=== PATIENT | female | born 1975 | race Caucasian/White ===

== ENCOUNTER 2018-01-14 16:25 | Emergency (ER) | payer MEDICAID, SELFPAY ==
[2018-01-14 16:26] VITALS: BP 148/115; PULSE 71; RESP 16; TEMP 35.6; O2SAT 99; BMI 56.0
[2018-01-14 16:45] VITALS: BP 142/69; PULSE 71; RESP 16; O2SAT 98
--- NOTE | 2018-01-14 16:48 | ED.VISSUMM ---
- ER Visit Summary Date of Service: 01/14/18 Chief Complaint: Atraumatic left posterior knee pain History of Present Illness: The patient is a 42 F with 3 day history of atraumatic left posterior knee pain. She has had this before. She has had negative noninvasive studies in the past. She denies any history of DVT or PE. She denies any recent travel or surgery. She denies any recent hospitalization. The pain is worse when she walks. She denies any redness or swelling to the anterior aspect of her left knee. She has never had the surgery. Physical Examination: Well-appearing middle-age female. Vital signs are stable afebrile. H EENT exam unremarkable lungs clear to auscultation heart regular rhythm no murmur. Abdomen morbidly obese but soft. Nontender. She is moving all 4 extremities. They are neurovascularly intact. She has full range of motion to her left hip, left knee and left ankle. Left foot is neurovascularly intact with DP pulse. Warm to touch and normal sensation. Left knee anteriorly appears normal. There is no effusion. She has normal flexion-extension. She does have more pain with flexion. She has tenderness in the popliteal fossa. Neurologic exam is unremarkable. Test Results: X-ray left knee shows degenerative changes with decreased joint space in the medial aspect of her left knee. There is no gross bony abnormalities. This may be secondary to degenerative joint disease and may be a cause of her pain. Noninvasive study left lower extremity is pending. This will be checked by the afternoon emergency physician and disposition will be made. Emergency Department Course and Treatment: Will be given 1 [place] for pain. Treatment Plan: Charge to home. Limited [place] for pain. Ice. And Motrin. Call and follow-up with orthopedics. Disposition: Discharge Impression: Atraumatic left posterior knee pain secondary to degenerative joint disease This note was generated with [employer] dictation software. It may contain incorrect words, spelling, and punctuation that were not noted in review of the chart prior to signing ED Disposition - Plan for ED Patient: Disposition: Home or Assisted Living Chief Complaint: Lower Extremity Injury Instructions: ED Knee Pain UKO Prescriptions: Hydrocodone/Acetaminophen [[place] 7.5-325 Tablet] 1 ea PO Q6H PRN PRN #10 tab PRN Reason: Pain Referrals: Juan Mancuso MD [STAFF PHYSICIAN] - As soon as possible Additional Instructions: Ice to your left knee. Hazel for pain along with Alayna for Call and follow-up with Dr. Juan Mancuso orthopedics for further evaluation of your knee. You do have degenerative changes of your medial knee which may be from arthritis or wear and tear of the cartilage.
--- NOTE | 2018-01-14 16:51 | ED.DCSUM_ITS ---
- ER Visit Summary Date of Service: 01/14/18 Chief Complaint: Atraumatic left posterior knee pain History of Present Illness: The patient is a 42 F with 3 day history of atraumatic left posterior knee pain. She has had this before. She has had negative noninvasive studies in the past. She denies any history of DVT or PE. She denies any recent travel or surgery. She denies any recent hospitalization. The pain is worse when she walks. She denies any redness or swelling to the anterior aspect of her left knee. She has never had the surgery. Physical Examination: Well-appearing middle-age female. Vital signs are stable afebrile. H EENT exam unremarkable lungs clear to auscultation heart regular rhythm no murmur. Abdomen morbidly obese but soft. Nontender. She is moving all 4 extremities. They are neurovascularly intact. She has full range of motion to her left hip, left knee and left ankle. Left foot is neurovascularly intact with DP pulse. Warm to touch and normal sensation. Left knee anteriorly appears normal. There is no effusion. She has normal flexion- extension. She does have more pain with flexion. She has tenderness in the popliteal fossa. Neurologic exam is unremarkable. Test Results: X-ray left knee shows degenerative changes with decreased joint space in the medial aspect of her left knee. There is no gross bony abnormalities. This may be secondary to degenerative joint disease and may be a cause of her pain. Noninvasive study left lower extremity is pending. This will be checked by the afternoon emergency physician and disposition will be made. Emergency Department Course and Treatment: Will be given 1 [place] for pain. Treatment Plan: Charge to home. Limited [place] for pain. Ice. And Motrin. Call and follow-up with orthopedics. Disposition: Discharge Impression: Atraumatic left posterior knee pain secondary to degenerative joint disease This note was generated with [employer] dictation software. It may contain incorrect words, spelling, and punctuation that were not noted in review of the chart prior to signing ED Disposition - Plan for ED Patient: Disposition: Home or Assisted Living Chief Complaint: Lower Extremity Injury Instructions: ED Knee Pain UKO Prescriptions: Hydrocodone/Acetaminophen [[place] 7.5-325 Tablet] 1 ea PO Q6H PRN PRN #10 tab PRN Reason: Pain Referrals: Juan Mancuso MD [STAFF PHYSICIAN] - As soon as possible Additional Instructions: Ice to your left knee. Hazel for pain along with Alayna for Call and follow-up with Dr. Juan Mancuso orthopedics for further evaluation of your knee. You do have degenerative changes of your medial knee which may be from arthritis or wear and tear of the cartilage.
--- NOTE | 2018-01-14 16:51 | RAD_ITS ---
XR Knee 3 Views INDICATION: LEFT KNEE PAIN. NKI COMPARISON: None TECHNIQUE: 3 views of the left knee FINDINGS: The medial joint compartment is narrowed. Marginal osteophytes are noted. There is no significant joint effusion. There is no evidence of fracture or dislocation. RAD/Knee 3 Views IMPRESSION: Degenerative changes at the left knee predominantly involving the medial compartment. at 1743 Reported and signed by: Cindy Delgado MD Electronically Signed: Cindy Delgado MD at 16:42 EDT Tel , Service support ,
--- NOTE | 2018-01-14 17:11 | ED.DEP ---
ED Disposition - Plan for ED Patient: Disposition: Home or Assisted Living Chief Complaint: Lower Extremity Injury Instructions: ED Knee Pain UKO Prescriptions: Hydrocodone/Acetaminophen [[place] 7.5-325 Tablet] 1 ea PO Q6H PRN PRN #10 tab PRN Reason: Pain Referrals: Juan Mancuso MD [STAFF PHYSICIAN] - As soon as possible Additional Instructions: Ice to your left knee. [place] for pain along with Motrin for Call and follow-up with Dr. Juan Mancuso orthopedics for further evaluation of your knee. You do have degenerative changes of your medial knee which may be from arthritis or wear and tear of the cartilage.
[2018-01-14] MEDS: HYDROcodone Bitartrate/Apap 5/325 Tablet PO (17:16)
--- NOTE | 2018-01-14 17:16 | DCINST.ED_ITS ---
ED Disposition - Plan for ED Patient: Disposition: Home or Assisted Living Chief Complaint: Lower Extremity Injury Instructions: ED Knee Pain UKO Prescriptions: Hydrocodone/Acetaminophen [[place] 7.5-325 Tablet] 1 ea PO Q6H PRN PRN #10 tab PRN Reason: Pain Referrals: Juan Mancuso MD [STAFF PHYSICIAN] - As soon as possible Additional Instructions: Ice to your left knee. [place] for pain along with Motrin for Call and follow-up with Dr. Juan Mancuso orthopedics for further evaluation of your knee. You do have degenerative changes of your medial knee which may be from arthritis or wear and tear of the cartilage.
--- NOTE | 2018-01-14 17:55 | US_ITS ---
US Venous Duplex LE Unilat / Limited INDICATION: LT POSTERIOR KNEE PAIN COMPARISON: None TECHNIQUE: Ultrasonographic grayscale, duplex investigation of the venous structures of the right lower extremity. Doppler waveform analysis. FINDINGS: Study is difficult and limited due to patient's body habitus. There is normal flow and augmentation without evidence of thrombus in the right greater saphenous vein, common femoral vein, femoral vein, popliteal vein, and posterior tibial vein. US/Venous Duplex Imag/Limited/Uni IMPRESSION: Negative examination. No evidence of DVT in the right lower extremity. at 1836 Reported and signed by: Cindy Delgado MD Electronically Signed: Cindy Delgado MD at 17:34 EDT Tel , Service support ,
[2018-01-14 20:12] VITALS: PULSE 82; RESP 16; O2SAT 98
== END 2018-01-14 20:12 | disposition home or self-care (01) ==
PROVIDERS: Emergency Provider Emergency Medicine
DX: M17.12 Unilateral primary osteoarthritis, left knee (principal); Z72.0 Tobacco use
CPT/HCPCS: 73562; 93971; 99283

== ENCOUNTER 2018-01-25 17:07 | Emergency (ER) | payer MEDICAID, SELFPAY ==
[2018-01-25 17:10] VITALS: BP 145/50; PULSE 73; RESP 15; TEMP 36
[2018-01-25 17:17] VITALS: BMI 56.1
--- NOTE | 2018-01-25 17:55 | RAD_ITS ---
STUDY: X-RAY - LEFT TIBIA AND FIBULA REASON FOR EXAM: Female, 42 years old. PAIN, FALL TECHNIQUE: 2 view(s) of the tibia and fibula were obtained. 4 images COMPARISON: None. FINDINGS: Normal visualized tibia. Normal visualized fibula. The soft tissue structures are unremarkable. RAD/Tibia & Fibula 2 Views IMPRESSION: Normal x-ray examination of the tibia and fibula. Electronically Signed: Alyson Galan MD at 18:59 EDT Tel , Service support ,
--- NOTE | 2018-01-25 19:09 | ED.VISSUMM ---
- ER Visit Summary Date of Service: 01/25/18 Chief Complaint: Left leg pain History of Present Illness: The patient is a 42 F who presents with left leg pain. She has been having symptoms for about 1 week. She complains of left calf pain. She was recently seen in the emergency department. She had a knee x-ray which showed some degenerative changes and reports that she also had a negative venous duplex. She states that she fell yesterday twisting her lower leg and has had increased pain since that time. Although she initially reported to staff that she has been unable to bear any weight on further history she was actually able to get up and down the steps yesterday and was able to ambulate today with the use of a cane. She states that she has hydrocodone at home but does not like to take it because of nausea and only makes her feel. Physical Examination: Afebrile vitals are unremarkable Heart regular rate and rhythm Lungs are clear Abdomen soft Patient does have some left calf tenderness but no soft tissue swelling skin appears normal she has an easily palpable dorsalis pedis pulse with active full range of motion and normal sensation light touch Test Results: X-ray of the tibia and fibula is normal Emergency Department Course and Treatment: Patient does have a history of prior similar symptoms and recently had a negative duplex. She does report increased pain after a fall. Therefore we did obtain x-rays which are unremarkable. She was advised on supportive care. If she does not want to take the opiates that she has at home she was advised to use ibuprofen or Aleve rest ice and elevate. The patient was discharged. Treatment Plan: [] Disposition: Discharge Impression: Left leg pain This note was generated with [employer] dictation software. It may contain incorrect words, spelling, and punctuation that were not noted in review of the chart prior to signing ED Disposition - Plan for ED Patient: Chief Complaint: Lower Extremity Injury Referrals: Care Physician,No Primary [Primary Care Provider] -
--- NOTE | 2018-01-25 19:12 | ED.DCSUM_ITS ---
- ER Visit Summary Date of Service: 01/25/18 Chief Complaint: Left leg pain History of Present Illness: The patient is a 42 F who presents with left leg pain. She has been having symptoms for about 1 week. She complains of left calf pain. She was recently seen in the emergency department. She had a knee x -ray which showed some degenerative changes and reports that she also had a negative venous duplex. She states that she fell yesterday twisting her lower leg and has had increased pain since that time. Although she initially reported to staff that she has been unable to bear any weight on further history she was actually able to get up and down the steps yesterday and was able to ambulate today with the use of a cane. She states that she has hydrocodone at home but does not like to take it because of nausea and only makes her feel. Physical Examination: Afebrile vitals are unremarkable Heart regular rate and rhythm Lungs are clear Abdomen soft Patient does have some left calf tenderness but no soft tissue swelling skin appears normal she has an easily palpable dorsalis pedis pulse with active full range of motion and normal sensation light touch Test Results: X-ray of the tibia and fibula is normal Emergency Department Course and Treatment: Patient does have a history of prior similar symptoms and recently had a negative duplex. She does report increased pain after a fall. Therefore we did obtain x-rays which are unremarkable. She was advised on supportive care. If she does not want to take the opiates that she has at home she was advised to use ibuprofen or Aleve rest ice and elevate. The patient was discharged. Treatment Plan: [] Disposition: Discharge Impression: Left leg pain This note was generated with [employer] dictation software. It may contain incorrect words, spelling, and punctuation that were not noted in review of the chart prior to signing ED Disposition - Plan for ED Patient: Chief Complaint: Lower Extremity Injury Referrals: Care Physician,No Primary [Primary Care Provider] -
--- NOTE | 2018-01-25 19:13 | ED.DEP ---
ED Disposition - Plan for ED Patient: Chief Complaint: Lower Extremity Injury Instructions: ED Muscle Pain Leg Cramps Referrals: Care Physician,No Primary [Primary Care Provider] -
== END 2018-01-25 19:28 | disposition home or self-care (01) ==
LOC: ED 17:38
PROVIDERS: Emergency Provider Emergency Medicine
DX: M79.662 Pain in left lower leg (principal)
CPT/HCPCS: 73590; 99282

== ENCOUNTER 2020-11-12 15:22 | Emergency (ER) | payer MEDICAID, SELFPAY ==
[2020-11-12 15:23] VITALS: BP 149/94; PULSE 80; RESP 17; TEMP 36.3; O2SAT 100; BMI 61.4
--- NOTE | 2020-11-12 15:49 | ED.VIS.GEN ---
History of Present Illness Chief Complaint: Edema Informant: Patient Onset: Yesterday Current Severity: Mild Maximum Severity: Mild Narrative: Patient presents secondary to a erythematous painful swollen area on her right leg. She noted it last night while she was at work. She denies any known injury. She is concerned for a blood clot. She does not have significant chest pain but states occasionally when she takes a very deep breath and she will have a slight pain at the end of inhalation. She does not feel short of breath. She has no history of DVT or PE. - Past Medical History (1) Hypertension Status: Chronic (2) Kidney stones Status: Resolved Past Medical History - Allergies and Home Meds Allergies/Adverse Reactions: Allergies codeine phosphate [From Tylenol-Codeine #3] Adverse Reaction (Verified 11/12/20 15:22) Nausea Primary Care Physician: Care Physician,No Primary [Primary Care Provider] - Prior records reviewed: Yes Lives: With Family Smoking Status: Never smoker Review of Systems General: Denies: Chills, Fever Eyes: Denies: Visual changes - bilaterally ENT: Denies: Bilateral ear pain Cardiovascular: Denies: Chest pain Respiratory: Denies: Dyspnea, Cough Gastrointestinal: Denies: Abdominal pain, Vomiting, Diarrhea Genitourinary: Denies: Dysuria Musculoskeletal: Reports: Swelling, Extremity Pain Skin: Denies: Rash Neurological: Denies: Headache Hematologic: Denies: Easy bruising, Easy bleeding Allergy: Denies: Uticaria Physical Exam Vital Signs/Narrative: Vital Signs Temp Pulse Resp BP Pulse Ox 11/12/20 15:23 97.3 F L 80 17 149/94 H 100 Inital Vital Signs reviewed: Yes General: Well nourished, Well developed Head: Normocephalic Eyes: Perrl ENT: Moist mucous membranes Neck: Supple Cardiovascular: Regular rate, Regular rhythm Respiratory: No distress, CTA bilaterally Abdomen: Soft, Nontender Extremities: - - Patient has a linear area of erythema with mild induration over the posterior lateral distal thigh on the right. This appears to be consistent with superficial thrombophlebitis. Neurological: Alert, Oriented x3 Psychological: Normal affect Diagnostic/Tx/Re-eval - Medical Decision Making On physical exam patient appears to have superficial thrombophlebitis. She presents at a time I do not have venous ultrasound available to evaluate for DVT. She will be given a one-time dose of Lovenox and will return tomorrow for an outpatient ultrasound of her leg. Patient is comfortable with this plan. Heart rate and pulse oximetry are normal at this time I do not suspect significant PE. ED Disposition - Plan for ED Patient: Disposition: Home or Assisted Living Diagnosis: Superficial thrombophlebitis Instructions: ED Thrombophlebitis, Superficial Referrals: Rai Alejo III, MD [STAFF PHYSICIAN] - 1-2 Weeks
[2020-11-12] MEDS: Enoxaparin 150 MG/ML Syringe SC (16:07)
[2020-11-12 16:09] VITALS: PULSE 89; RESP 18; O2SAT 98
== END 2020-11-12 16:10 | disposition home or self-care (01) ==
LOC: ED 16:04
PROVIDERS: Emergency Provider Emergency Medicine
DX: I80.3 Phlebitis and thrombophlebitis of lower extremities, unspecified (principal); Z87.442 Personal history of urinary calculi
CPT/HCPCS: 99282

== ENCOUNTER → 2020-11-13 14:57 | Outpatient (CLI) | payer MEDICAID, SELFPAY ==
[2020-11-12 15:23] VITALS: BMI 61.4
--- NOTE | 2020-11-13 14:59 | VDLE_ITS ---
Reason For Study: Swelling RIGHT GSV is normal. CFV is compressible, spontaneous, phasic, competent and demonstrates normal augmentation. FV is compressible, spontaneous, phasic, competent and demonstrates normal augmentation. POP V is compressible, spontaneous, phasic, competent and demonstrates normal augmentation. T/P Trunk is compressible. PTV is compressible. RT PerV is compressible. FV mid-distal visualized with color only, pt unable to tolerate compression. Thrombus filled varicose veins noted in posterior lateral distal thigh-knee area. Thrombus is not extending in to the SSV. Procedure This is a venous duplex using B-mode, color flow and spectral Doppler. Exam performed in department. A preliminary report was called and/or faxed to ED for treatment. Pt was seen in ED 11/12/2020, no PCP so taken back down to ED. Interpretation Summary Deep veins of the right lower extremity are patent and compressible segmentally. There is no evidence of right lower extremity deep vein thrombosis. Valvular competence appears intact within the proximal deep venous system on the right . The right great saphenous vein appears patent and compressible segmentally. Acute superficial thrombophlebitis is noted involving superficial varicosities in the distal, postero-lateral thigh and at the level of the knee. The superficial thrombophlebitis does not extend into the right small saphenous vein. Ordering Physician: Sarita Langston Performed By: Angie Montelongo RVT
== END ==
PROVIDERS: Referring Provider Emergency Medicine; Visit Provider Emergency Medicine
DX: M79.89 Other specified soft tissue disorders (principal)
CPT/HCPCS: 93971

== ENCOUNTER 2020-11-13 15:28 | Emergency (ER) | payer MEDICAID, SELFPAY ==
[2020-11-12 15:23] VITALS: BMI 61.4
[2020-11-13 15:29] VITALS: BP 171/88; PULSE 76; RESP 16; TEMP 36.1; O2SAT 99; BMI 63.6
--- NOTE | 2020-11-13 15:59 | ED.VISSUMM ---
- ER Visit Summary Date of Service: 11/13/20 Chief Complaint: Right leg pain History of Present Illness: The patient is a 45 F who presents with right leg pain that began 2 to 3 days ago. Patient was seen here yesterday and was ordered an outpatient venous Doppler ultrasound. This was done today. Patient has thrombus filled varicose vein in the posterior lateral distal thigh and knee area. Patient was then referred to the emergency department because she has no primary care physician. Patient denies any change in pain. Patient denies any fevers or chills. Patient denies any chest pain or shortness of breath. Patient describes her pain is burning. Patient states it is worse with ambulation. Physical Examination: Vital signs are stable. Patient is afebrile. Patient is in no acute distress. Heart was regular rate and rhythm. Lungs are clear and equal bilaterally. Abdomen is soft. Bowel sounds are normal. There is no tenderness. Musculoskeletal exam reveals some erythema and tenderness over the right lateral knee and proximal lower leg. There is no discharge or drainage. There is no calf tenderness. There is good range of motion. Cranial nerves II through XII are intact. There are no focal motor or sensory deficits. Test Results: Venous duplex results from her outpatient ultrasound was reviewed. There is a thrombus filled varicose vein noted in the posterior lateral distal right thigh/knee area. The thrombus is not extending into the deep vein system. Emergency Department Course and Treatment: Patient was advised of her findings. Patient was advised that this does not need anticoagulant therapy. Patient was given a referral for primary care physician for follow-up care. Patient was instructed return if worse in any way. Patient understood and was agreeable with the plan. All questions were answered. Disposition: Discharge home Impression: Superficial thrombophlebitis This note was generated with [employer] dictation software. It may contain incorrect words, spelling, and punctuation that were not noted in review of the chart prior to signing ED Disposition - Plan for ED Patient: Disposition: Home or Assisted Living Diagnosis: Superficial thrombophlebitis Instructions: ED Thrombophlebitis, Superficial Referrals: Neal Dinh MD [STAFF PHYSICIAN] - 5-7 Days
== END 2020-11-13 16:12 | disposition home or self-care (01) ==
PROVIDERS: Emergency Provider Emergency Medicine
DX: I80.3 Phlebitis and thrombophlebitis of lower extremities, unspecified (principal)
CPT/HCPCS: 93971; 99282